=== PATIENT | female | born 1975 | race Hispanic/Latino ===

== ENCOUNTER → 2018-01-31 | Emergency (ER) | payer OTHER ==
[~2018-01-31] VITALS: Ht 149.9 cm; Wt 52.2 kg
[~2018-01-31] MED LIST: IOPAMIDOL 370 MG/ML 200 ML INFUS..BTL INJ ONE; MORPHINE SULFATE INJ 4 MG/ML INJ IV STA; ONDANSETRON HCL INJ 2 MG/ML VIAL IV STA; SODIUM CHLORIDE 0.9% 1000ML 1,000 ML IV STA; SODIUM CHLORIDE 0.9% 50ML 50 ML ONE
[2018-01-31 13:05] LABS: BASOPHILS % 0.5 % (0.0-1.0); EOSINOPHILS # (AUTO) 0.2 (0.0-0.4); EOSINOPHILS % 2.3 % (0.0-6.0); HEMATOCRIT 35.3 % (34.2-44.1); HEMOGLOBIN 11.6 g/dL (12.0-16.0); LYMPHOCYTES # (AUTO) 1.6 (1.0-3.2); LYMPHOCYTES % 19.7 % (18.0-39.1); MEAN CORPUSCULAR HEMOGLOBIN 28.9 pg (28-32); MEAN CORPUSCULAR HGB CONC 32.9 g/dL (31-35); MONOCYTES % 12.3 % (4.4-11.3); NEUTROPHILS # (AUTO) 5.4 (2.1-6.9); NEUTROPHILS % 64.8 % (38.7-80.0); PLATELET COUNT 237 x10e3/uL (140-360); RED BLOOD COUNT 4.01 x10e6/uL (3.6-5.1); RED CELL DISTRIBUTION WIDTH 13.6 % (11.7-14.4)
[2018-01-31 13:15] LABS: CLARITY,URINE HAZY (CLEAR); COLOR,URINE YELLOW (YELLOW); LEUKOCYTE ESTERASE ,URINE TRACE (NEGATIVE); NITRITE,URINE NEGATIVE (NEGATIVE); PROTEIN,URINE DIPSTICK NEGATIVE (NEGATIVE)
[2018-01-31 13:16] LABS: BILIRUBIN,URINE NEGATIVE (NEGATIVE); KETONES,URINE 1+ (NEGATIVE); URINE UROBILINOGEN 0.2 mg/dL (0.2 - 1)
[2018-01-31 13:18] LABS: PREGNANCY TEST, URINE NEGATIVE (NEGATIVE)
[2018-01-31 13:23] LABS: ALANINE AMINOTRANSFERASE 20 IU/L (0-55); ALBUMIN 3.6 g/dL (3.5-5.0); ALBUMIN/GLOBULIN RATIO 0.9 (0.8-2.0); ALKALINE PHOSPHATASE 79 IU/L (40-150); AMYLASE 48 U/L (25-125); ANION GAP 12.7 mmol/L (8-16); BLOOD UREA NITROGEN 7 mg/dL (7-26); BUN/CREATININE RATIO 11 (6-25); CALCIUM 8.8 mg/dL (8.4-10.2); CARBON DIOXIDE 21 mmol/L (22-29); CHLORIDE 106 mmol/L (98-107); CREATININE, SERUM 0.61 mg/dL (0.57-1.11); EST GLOMERULAR FILTRATION RATE > 60 ML/MIN (60-); GLUCOSE 97 mg/dL (74-118); LIPASE 17 U/L (8-78); POTASSIUM 3.7 mmol/L (3.5-5.1); SODIUM 136 mmol/L (136-145)
[2018-01-31 13:25] LABS: BACTERIA,URINE MODERATE /HPF; EPITHELIAL CELLS,URINE FEW /LPF
--- NOTE | 2018-01-31 14:56 | Diagnostic Imaging Report ---
Examination: CT BRAIN WITHOUT CONTRAST History:Headaches. Fever. Comparison studies:None Technique: Axial images were obtained from the skull base to the vertex. Coronal and sagittal images reconstructed from the axial data. Dose modulation, iterative reconstruction, and/or weight based adjustment of the mA/kV was utilized to reduce the radiation dose to as low as reasonably achievable. Intravenous contrast: None Findings: Scalp: No abnormalities. Bones: No fractures, blastic or lytic lesions. Brain sulci: Appropriate for age. Ventricles: Normal in size and configuration. No hydrocephalus. Extra-axial space: No abnormalities. Parenchyma: There are two dystrophic calcifications in the right precentral gyrus and right operculum with the largest measuring 5 mm in the right operculum. These are most probably related to prior infectious or inflammatory process. No masses, hemorrhage, or acute or chronic cortical based vascular insults.. Sellar/suprasellar region: No abnormalities. Craniocervical junction: Patent foramen magnum. No Chiari one malformation. Incidental findings: None. Impression: 1. No acute intracranial abnormalities. 2. Dystrophic calcifications in the right precentral gyrus and right operculum are related to prior infectious or inflammatory process. Signed by: Dr. Arianna Irby M.D. on 01/31/2018 2:53 PM
--- NOTE | 2018-01-31 15:04 | Diagnostic Imaging Report ---
EXAM: CT Abdomen and Pelvis WITH contrast INDICATION: Abdominal pain, fever, headache \S\abd pain- IV contrast pnly \[id number] \[id number] COMPARISON: None. TECHNIQUE: Abdomen and pelvis were scanned utilizing a multidetector helical scanner from the lung base to the pubic symphysis after administration of IV contrast. Coronal and sagittal reformations were obtained. Routine protocol was performed. Scan was performed when during portal venous phase. IV CONTRAST: 100 mL of Isovue-370 ORAL CONTRAST: Water COMPLICATIONS: None RADIATION DOSE: Total DLP: 197.5 mGy*cm Estimated effective dose: (DLP x 0.015 x size factor) mSv CTDIvol has been reviewed. It is below the limits set by the Radiation Protocol Committee (RPC). FINDINGS: LINES and TUBES: None. LOWER THORAX: Unremarkable HEPATOBILIARY: No focal hepatic lesions. No biliary ductal dilation. GALLBLADDER: No radio-opaque stones or sludge. No wall thickening. SPLEEN: No splenomegaly. PANCREAS: No focal masses or ductal dilatation. ADRENALS: No adrenal nodules KIDNEYS/URETERS: Kidneys enhance symmetrically. No hydronephrosis. There are scattered too small to characterize hypodensities, likely benign. No stones. GI TRACT: No abnormal distention, wall thickening, or evidence of bowel obstruction. Appendix is normal. PELVIC ORGANS/BLADDER: An 8 mm isodense structure in the left fundal endometrium (coronal image 46) may represent a polyp. Left ovarian 2.1 cm corpus luteum. LYMPH NODES: No lymphadenopathy. VESSELS: Unremarkable. PERITONEUM / RETROPERITONEUM: Small amount of free fluid in the pelvis. BONES: Mild disc space narrowing at L5-S1. SOFT TISSUES: Unremarkable. IMPRESSION: 1. No acute abnormalities in the abdomen and pelvis. 2. Possible subcentimeter endometrial polyp which can be further evaluated with pelvic ultrasound in 6-8 weeks. Signed by: DR. Erasmo Mcgee MD on 01/31/2018 3:01 PM
== END | disposition home or self-care (01) ==
LOC: ER 11:44
DX: R50.9 Fever, unspecified (principal); N30.91 Cystitis, unspecified with hematuria
CPT/HCPCS: 36415; 70450; 74177; 80053; 81001; 81025; 82150; 83690; 85025; 87400; 99283; Q9967